=== PATIENT | female | born 1970 | race Two or more races ===

== ENCOUNTER 2017-11-02 22:17 | Emergency (ER) | payer BC ==
[2017-11-02] MEDS ORDERED: Acetaminophen/HYDROcodone 325-5 MG Tab PO ONE (22:37)
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
[2017-11-02] MEDS ORDERED: Silver Sulfadiazine 1% Crm 50 GM Tube TOP STA (23:53)
== END 2017-11-03 00:17 | disposition home or self-care (01) ==
LOC: JD.ED 22:17
DX: T22.211A Burn of second degree of right forearm, initial encounter (principal); T23.271A Burn of second degree of right wrist, initial encounter; T20.10XA Burn of first degree of head, face, and neck, unspecified site, initial encounter; X12.XXXA Contact with other hot fluids, initial encounter
CPT/HCPCS: 16020; 99284; A9270; 99285-25

== ENCOUNTER 2020-06-26 19:01 | Emergency (ER) | payer BC, OTHER ==
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
[2020-06-26] MEDS ORDERED: Metoclopramide 10 MG/2 ML SDV IVPUSH ONE (19:42)
[2020-06-26] MEDS ORDERED: Dexamethasone 4 MG/ML SDV IVPUSH ONE (19:43)
[2020-06-26] MEDS ORDERED: Sodium Chloride 0.9% 10 ML Syringe FLUSH PRN (19:43)
--- NOTE | 2020-06-26 20:47 | CT ---
Head CT Technique: Multiple axial sections through the brain were obtained. Intravenous contrast was not utilized. Comparison: No prior intracranial imaging is available. Findings: Ventricles along with basal cisterns and sulci over the convexities appear within normal limits for the patient's age. No abnormal parenchymal densities are seen. No evidence of intracranial hemorrhage. No midline shift or mass-effect is seen. So called "empty sella" is present which is generally considered as a normal variant if patient has no pituitary dysfunction. Visualized paranasal sinuses and mastoid sinuses show nothing acute. No acute calvarial finding is appreciated. Impression: 1. So-called "empty sella" as noted above. 2. Nothing acute is identified on noncontrast head CT exam. Diagnostic code #2 This report was dictated in MDT
[2020-06-26] MEDS ORDERED: diphenhydrAMINE 50 MG/ML SDV IVPUSH ONE (20:49)
[2020-06-26] MEDS ORDERED: Acetaminophen 325 MG Tab PO ONE (20:49)
[2020-06-26] MEDS ORDERED: Ketorolac 30 MG/ML SDV IVPUSH SCH (21:00)
== END 2020-06-26 21:45 | disposition home or self-care (01) ==
LOC: JD.ED 19:01
DX: R51 Headache (principal); R11.0 Nausea
CPT/HCPCS: 36415; 70450; 80053; 85025; 96374; 96375; 99284; A9270; J1100; J1200; J1885; J2765; 99283